=== PATIENT | male | born 1945 | race Caucasian/White ===

== ENCOUNTER 2024-05-03 08:14 | Emergency (ER) | payer MEDICARE, BC ==
[2024-05-03] MEDS ORDERED: Nirmatrelvir/Ritonavir 300 MG/100 MG Dosepak PO SCH (09:17)
== END 2024-05-03 09:34 | disposition home or self-care (01) ==
LOC: DL.ED 08:14
DX: U07.1 COVID-19 (principal); Z88.8 Allergy status to other drugs, medicaments and biological substances
CPT/HCPCS: 87081; 87430; 87804; 99283; U0002